=== PATIENT | female | born 1965 | race Caucasian/White ===

== ENCOUNTER → 2019-04-03 12:58 | Outpatient (CLI) | payer BC, OTHER ==
--- NOTE | 2019-04-04 14:45 | EC ---
PATIENT:SURENDRA BARAHONA DATE OF SERVICE: 04/03/19 SEX: F MEDICAL RECORD: [id number] DATE OF : 67 LOCATION:[facility] AGE OF PATIENT: 53 ADMISSION DATE: 04/03/19 REFERRING PHYSICIAN: INTERPRETING PHYSICIAN: SANGEETA CORLEY MD ECHOCARDIOGRAM REPORT ECHO CHARGES 4 ECHO COMPLETE Date: 04/03/19 CLINICAL DIAGNOSIS: MURMUR/HTN ECHOCARDIOGRAPHIC MEASUREMENTS (adult normal given) AC root (d.<3.7cm) 3.3 cm LV Septum d (<1.2 cm> 1.2 cm Valve Excursion 2.3 cm LV Septum (systole) 1.9 cm Left Atria (s.<4.0cm> 4.8 cm LVPW d(<1.2cm) 1.1 cm RV (d.<2.3cm) 3.0 cm LVPW (sytole) 1.6 cm LV diastole(<5.6CM) 5.6 cm MV E-F(>70mm/sec) cm LV systole 3.7 cm LVOT Diameter 2.2 cm MV exc.(>10mm) cm Est.ejection fraction (50-75%) % DOPPLER: LVIT cm/sec A 60.0 cm/sec E 72.0 cm/sec LA cm/sec RVSP 15.0 mmHg LVOT 123 cm/sec AOP1/2T m/s Asc. Ao 145 cm/sec RVOT 81.0 cm/sec RA cm/sec PA 134 cm/sec AV Gradient Peak 8.4 mmHg AV Mean 4.7 mmHg AV Area 3.7 cm MV Gradient Peak 2.9 mmHg MV Mean 1.3 mmHg MV Area cm COMMENTS: OP - HC Family Day Care Provider: Rima BOLDENOE Batch Weigher: 1 Dr. Corley TAPE# PACS Pericardial Effusion N DATE OF SERVICE: 04/03/2019 PROCEDURE: Echocardiogram. FINDINGS: 1. Left ventricular chamber size is upper limits of normal. Left ventricular systolic function is preserved at 55%. 2. Left atrium is enlarged at 4.8 cm. Right atrium and right ventricular chamber sizes are as well moderately dilated. 3. Valvular structures have normal structure and motion. ECHOCARDIOGRAM REPORT [id number] SURENDRA BARAHONA 4. Doppler interrogation reveals no significant valvular insufficiency or stenosis and pulmonary systolic pressure is normal estimated at 15 mmHg. 5. No evidence of pericardial effusion or left ventricular thrombus. TRANSINT:[id number] Voice Confirmation ID: [id number] DOCUMENT ID: [id number] SANGEETA CORLEY MD at 1445 CC: [id number] DICTATION DATE: 04/04/19 1112 JIG HAND: 04/04/19 1301 DEP CLI 04/03/19 [place] [id number] [place] [id number]
== END | disposition home or self-care (01) ==
LOC: D.HCCARDIO 12:58
PROVIDERS: ATTEND Internal Medicine Interventional Cardiology
DX: I10 Essential (primary) hypertension (principal); R01.1 Cardiac murmur, unspecified

== ENCOUNTER → 2019-08-04 17:14 | Outpatient (CLI) | payer BC, OTHER | END | disposition home or self-care (01) | LOC: D.LABREF 17:14 | PROVIDERS: ATTEND Orthopaedic Surgery | DX: M19.90 Unspecified osteoarthritis, unspecified site (principal) ==

== ENCOUNTER → 2019-12-24 08:53 | Outpatient (CLI) | payer BC, OTHER ==
[2019-10-21 09:43] VITALS: BMI 43.6
[~2019-12-24 08:53] MED LIST: DIOVAN160 MG PO; ELIQUIS2.5 MG PO; FUROSEMIDE20 MG PO; HYDROCHLOROTH12.5 M1 PO; K-TAB10 MEQ PO; KEFLEX500 MG PO; LIPITOR10 MG PO; ZOFRAN ODT4 MG/UDTAB PO; oxyCODONE IR PO
== END | disposition home or self-care (01) ==
LOC: D.MRI 08:53
PROVIDERS: ATTEND Orthopaedic Surgery
DX: M54.16 Radiculopathy, lumbar region (principal)

== ENCOUNTER → 2020-06-30 13:13 | Outpatient (CLI) | payer BC, OTHER ==
[2019-10-21 09:43] VITALS: BMI 43.6
== END | disposition home or self-care (01) ==
LOC: D.MRI 13:13
PROVIDERS: ATTEND Orthopaedic Surgery
DX: S83.242A Other tear of medial meniscus, current injury, left knee, initial encounter (principal)